=== PATIENT | female | born 1960 | race Caucasian/White ===

== ENCOUNTER 2016-11-10 10:17 | Emergency (ER) | payer SELFPAY ==
--- NOTE | 2016-11-10 11:10 | ERRECORD ---
[facility] EMERGENCY RECORD HPI PSYCHIATRIC (10:45 WMEI) CHIEF COMPLAINT: Patient presents for evaluation of suicidal ideation, Patient presents for evaluation of pt referred by pcp from office. HISTORIAN: History provided by patient, pt denies any current suicidal ideation but has entertained the idea of suicide later this year because of chronic medical condition/back pain pt coherent denies depression previous psych problems and doesn't want to any lab. Agrees to make MHMR apt to be evaluated. LOCATION: No localizing symptoms. TIME COURSE: There has been no change in the patient's symptoms over time. ASSOCIATED WITH: No associated symptoms, No associated alcohol use, No associated delusions, No associated depression, No associated family problems. EXACERBATED BY: Patient's condition exacerbated by nothing. RELIEVED BY: Patient's condition relieved by nothing. ROS (10:38 WMEI) CONSTITUTIONAL: Historian denies chills, denies fever. EYES: Historian denies eye redness, denies eye discharge. ENT: Historian denies rhinorrhea, denies sore throat. CARDIOVASCULAR: Historian denies chest pain, no radiation. RESPIRATORY: Historian denies cough, denies shortness of breath. GI: Historian denies abdominal pain, denies nausea. GENITOURINARY FEMALE: Historian denies frequency, denies urgency. MUSCULOSKELETAL: Historian reports arthralgias, reports back pain. SKIN: Historian denies skin changes, denies skin lesions. NEUROLOGIC: Historian denies focal weakness, denies mental status changes. PSYCHIATRIC: Historian denies alcohol abuse, denies drug abuse. PAST MEDICAL HISTORY (10:32 ASA) MEDICAL HISTORY: Flu vaccine not up to date, Tetanus not up to date, Pneumococcal vaccine not up to date, Past medical history includes neurological disease, Autism, Past medical history includes pulmonary disease, asthma. FEMALE SURGICAL HISTORY: Surgical history of appendectomy, Surgical history of orthopedic surgery, back, HAJRINDER thumb, knee, hand. PSYCHIATRIC HISTORY: No previous psychiatric history, no history of suicidal ideations. SOCIAL HISTORY: Patient denies alcohol use, Patient denies drug use, Patient has no smoking history. KNOWN ALLERGIES Adderall Aleve doxycycline monohydrate &a-1R&a+25V*p+0X*t6188C*c202B*c15G*c2P*p-0X&a-25V&a+1R Name: Elida Bennett : 1960 F55 MedRec: [id number] AcctNum: [id number] Prepared: Emma Nov 10, 2016 17:07 by Interface Page 1 of 3 pMD [facility] EMERGENCY RECORD Ritalin unknown CURRENT MEDICATIONS glucosamine HCl: TABLET : Strength - 1,500 mg : ORAL Patient Dose: Unknown. (10:35 ASAH) albuterol: AEROSOL (GRAM) : Strength - 90 mcg : INHALATION Patient Dose: Unknown. (10:35 ASAH) ALPRAZolam: TABLET : Strength - 0.5 mg : ORAL Patient Dose: Unknown. (10:36 ASAH) hydrochlorothiazide: TABLET : Strength - 50 mg : ORAL Patient Dose: Unknown. (10:36 ASAH) clonazePAM: TABLET : Strength - 1 mg : ORAL Patient Dose: Unknown. (10:36 ASAH) traMADol: TABLET : Strength - 50 mg : ORAL Patient Dose: Unknown. (10:37 ASAH) VITAL SIGNS (10:25 ASAH) VITAL SIGNS: BP: 166/96, Pulse: 99, Resp: 16, Temp: 98.0 (Oral), Pain: 5, O2 sat: 99, Time: 11/10/2016 10:25. PHYSICAL EXAM (10:42 WMEI) CONSTITUTIONAL: Vital signs reviewed, Patient appears non toxic, Patient alert and oriented to person, place and time. HEAD: Head exam included findings of head atraumatic, normocephalic. EYES: Conjunctiva normal, Sclera normal. ENT: Ear exam normal, Nose exam normal. NECK: Neck exam included findings of normal range of motion, Trachea midline. RESPIRATORY CHEST: Breath sounds clear, Chest exam included findings of chest movement symmetrical. CARDIOVASCULAR: Cardiovascular exam included findings of heart rate regular rate and rhythm. ABDOMEN FEMALE: pt refuses. BACK: Tenderness. UPPER EXTREMITY: Upper extremity exam included findings of inspection normal, Range of motion normal, Motor strength normal. LOWER EXTREMITY: Lower extremity exam included findings of inspection normal, Range of motion normal. NEURO: Padmini coma scale 15, Neuro exam findings include patient oriented to person, place and time, Speech normal, Gait normal. SKIN: Skin exam included findings of skin warm, dry, and normal in color. &a-1R&a+25V*p+0X*x9544B*c202B*c15G*c2P*p-0X&a-25V&a+1R Name: Elida Bennett : 1960 F55 MedRec: [id number] AcctNum: [id number] Prepared: MonNov 10, 2016 17:07 by Interface Page 2 of 3 pMD [facility] EMERGENCY RECORD LYMPHATIC: Lymphatic exam normal. PSYCHIATRIC: Psychiatric exam included findings of patient oriented to person place and time, Normal affect, Judgment normal, Insight normal. DOCTOR NOTES (10:51 WMEI) TEXT: TALKED TO DR HERNANDEZ PCP PT DENIES ANY CURRENT SUICIDAL IDEATION OTHER THAN CHRONIC BACK PAIN FEELS FINE. PT AGREES TO MAKE [facility] APT. CONTACTED [facility] EXPECTING CALL FROM PT FOR APT. PROBLEM LIST No recorded problems DIAGNOSIS (10:54 WMEI) FINAL: PRIMARY: LOW BACK PAIN/CHRONIC. PRESCRIPTION No recorded prescriptions DISPOSITION PATIENT: Disposition Type: Discharge, Disposition: *Discharge Home. (10:54 WMEI) Patient left the department. (11:02 JEREMIAS) Almanzar: JEREMIAS=HORACIO Hicks, January WMEI=DO Agustin William &a-1R&a+25V*p+0X*v6063Q*c202B*c15G*c2P*p-0X&a-25V&a+1R Name: Elida Bennett : 1960 F55 MedRec: [id number] AcctNum: [id number] Prepared: Emma Nov 10, 2016 17:07 by Interface Page 3 of 3 pMD MTDD
--- NOTE | 2016-11-10 11:17 | PICIS ---
[facility] EMERGENCY RECORD TRIAGE (MonNov 10, 2016 10:28 ASA) TRIAGE NOTES: pt sent over from PCP for medical clearance. pt denies SI or HI. (MonNov 10, 2016 10:28 ASA) PATIENT: NAME: Elida Bennett, AGE: 55, GENDER: female, : Mon1960, TIME OF GREET: MonNov 10, 2016 10:18, PREFERRED LANGUAGE: Tuvaluan, ETHNICITY: Not or , ECODE BILLING MAP: [facility], SSN: [id number], Zip Code: [address], KG WEIGHT: 50.80, PHONE: , , , PERSON ID: [id number], PAYMENT: [employer] Self Pay, PCP: DO FELDER KRISTEL. (MonNov 10, 2016 10:28 ASA) COMPLAINT: medical clearence per PCP request. (MonNov 10, 2016 10:28 ASA) ADMISSION: URGENCY: 3 Urgent, ADMISSION SOURCE: Doctor's Office, TRANSPORT: Walk-in, BED: ER -04. (MonNov 10, 2016 10:28 ASAH) PAIN: Patient complains of pain described as, aching, Location back, Pain is constant, No aggravating factors, No relieving factors. (10:32 ASAH) IMMUNIZATIONS: Flu vaccine not up to date, Tetanus not up to date, Pneumococcal vaccine not up to date. (10:32 ASAH) SIRS SCORING: Heart Rate 55-109 (0), Temp range 96.8-101.1 (0), respiratory rate 12-24 (0), Latest WBC 3-14.9 (0), Mental status altered: yes (1), Infection or Suspected Infection: No. (10:32 ASAH) TRIAGE SCREENING: Patient denies suicidal ideation, Patient denies presence of domestic violence. (10:32 ASAH) LMP: LMP: Not Applicable. (10:32 ASAH) PROVIDERS: TRIAGE NURSE: Gina Hicks RN. (Emma Nov 10, 2016 10:28 ASA) VITAL SIGNS: BP 166/96, Pulse 99, Resp 16, Temp 98.0, (Oral), Pain 5, O2 Sat 99, Time 11/10/2016 10:25. (10:25 ASAH) KNOWN ALLERGIES Adderall Aleve doxycycline monohydrate Ritalin unknown CURRENT MEDICATIONS glucosamine HCl: TABLET : Strength - 1,500 mg : ORAL Patient Dose: Unknown. (10:35 ASAH) albuterol: AEROSOL (GRAM) : Strength - 90 mcg : INHALATION Patient Dose: Unknown. (10:35 ASAH) ALPRAZolam: TABLET : Strength - 0.5 mg : ORAL Patient Dose: Unknown. (10:36 ASAH) &a-1R&a+25V*p+0X*j3561K*c202B*c15G*c2P*p-0X&a-25V&a+1R Name: Elida Bennett : 1960 F55 MedRec: [id number] AcctNum: [id number] Prepared: [facility] Nov 10, 2016 17:13 by Interface Page 1 of 4 pMD [facility] EMERGENCY RECORD hydrochlorothiazide: TABLET : Strength - 50 mg : ORAL Patient Dose: Unknown. (10:36 ASAH) clonazePAM: TABLET : Strength - 1 mg : ORAL Patient Dose: Unknown. (10:36 ASAH) traMADol: TABLET : Strength - 50 mg : ORAL Patient Dose: Unknown. (10:37 ASAH) VITAL SIGNS (10:25 ASAH) VITAL SIGNS: BP: 166/96, Pulse: 99, Resp: 16, Temp: 98.0 (Oral), Pain: 5, O2 sat: 99, Time: 11/10/2016 10:25. NURSING PROCEDURE: DISCHARGE NOTE (11:01 ASA) DISCHARGE: Patient discharged to home, ambulating without assistance, driving self, unaccompanied, Summary of Care printed/ provided, Discharge instructions given to patient, Simple or moderate discharge teaching performed, by horacio mendoza. SAFETY: Side rails up, Cart/Stretcher in lowest position, Call light within reach, Hospital ID band on. NURSING PROCEDURE: NURSE NOTES (10:48 LSMI) NURSES NOTES: Notes: SPOKE WITH SIMBA AT [facility] ABOUT SETTING UP APT FOR PT HERE AT THE LOCAL OFFICE. SHE STATES THAT THEY ONLY DO SCREENINGS ON THURSDAYS FROM 0830 TO 1100. NO APPT NEEDED. THE PT JUST NEEDS TO SHOW UP. WALK IN SERVIVE ONLY. DR AGUSTIN AWARE AND AGREES. HPI PSYCHIATRIC (10:45 WMEI) CHIEF COMPLAINT: Patient presents for evaluation of suicidal ideation, Patient presents for evaluation of pt referred by pcp from office. HISTORIAN: History provided by patient, pt denies any current suicidal ideation but has entertained the idea of suicide later this year because of chronic medical condition/back pain pt coherent denies depression previous psych problems and doesn't want to any lab. Agrees to make MHMR apt to be evaluated. LOCATION: No localizing symptoms. TIME COURSE: There has been no change in the patient's symptoms over time. ASSOCIATED WITH: No associated symptoms, No associated alcohol use, No associated delusions, No associated depression, No associated family problems. EXACERBATED BY: Patient's condition exacerbated by nothing. RELIEVED BY: Patient's condition relieved by nothing. ROS (10:38 WMEI) CONSTITUTIONAL: Historian denies chills, denies fever. EYES: Historian denies eye redness, denies eye discharge. ENT: Historian denies rhinorrhea, denies sore throat. &a-1R&a+25V*p+0X*q4578P*c202B*c15G*c2P*p-0X&a-25V&a+1R Name: Elida Bennett : 1960 F55 MedRec: [id number] AcctNum: [id number] Prepared: Emma Nov 10, 2016 17:13 by Interface Page 2 of 4 pMD [facility] EMERGENCY RECORD CARDIOVASCULAR: Historian denies chest pain, no radiation. RESPIRATORY: Historian denies cough, denies shortness of breath. GI: Historian denies abdominal pain, denies nausea. GENITOURINARY FEMALE: Historian denies frequency, denies urgency. MUSCULOSKELETAL: Historian reports arthralgias, reports back pain. SKIN: Historian denies skin changes, denies skin lesions. NEUROLOGIC: Historian denies focal weakness, denies mental status changes. PSYCHIATRIC: Historian denies alcohol abuse, denies drug abuse. PAST MEDICAL HISTORY (10:32 ASA) MEDICAL HISTORY: Flu vaccine not up to date, Tetanus not up to date, Pneumococcal vaccine not up to date, Past medical history includes neurological disease, Autism, Past medical history includes pulmonary disease, asthma. FEMALE SURGICAL HISTORY: Surgical history of appendectomy, Surgical history of orthopedic surgery, back, HARJINDER thumb, knee, hand. PSYCHIATRIC HISTORY: No previous psychiatric history, no history of suicidal ideations. SOCIAL HISTORY: Patient denies alcohol use, Patient denies drug use, Patient has no smoking history. PHYSICAL EXAM (10:42 WMEI) CONSTITUTIONAL: Vital signs reviewed, Patient appears non toxic, Patient alert and oriented to person, place and time. HEAD: Head exam included findings of head atraumatic, normocephalic. EYES: Conjunctiva normal, Sclera normal. ENT: Ear exam normal, Nose exam normal. NECK: Neck exam included findings of normal range of motion, Trachea midline. RESPIRATORY CHEST: Breath sounds clear, Chest exam included findings of chest movement symmetrical. CARDIOVASCULAR: Cardiovascular exam included findings of heart rate regular rate and rhythm. ABDOMEN FEMALE: pt refuses. BACK: Tenderness. UPPER EXTREMITY: Upper extremity exam included findings of inspection normal, Range of motion normal, Motor strength normal. LOWER EXTREMITY: Lower extremity exam included findings of inspection normal, Range of motion normal. NEURO: [place] coma scale 15, Neuro exam findings include patient oriented to person, place and time, Speech normal, Gait normal. SKIN: Skin exam included findings of skin warm, dry, and normal in color. LYMPHATIC: Lymphatic exam normal. PSYCHIATRIC: Psychiatric exam included findings of patient &a-1R&a+25V*p+0X*b9293K*c202B*c15G*c2P*p-0X&a-25V&a+1R Name: Elida Bennett : 1960 F55 MedRec: [id number] AcctNum: [id number] Prepared: MonNov 10, 2016 17:13 by Interface Page 3 of 4 pMD [facility] EMERGENCY RECORD oriented to person place and time, Normal affect, Judgment normal, Insight normal. EVENTS TRANSFER: Triage to Emergency Emergency Room -04. (MonNov 10, 2016 10:28 ASAH) Removed from Emergency Emergency Room -04. (11:02 ASA) DOCTOR NOTES (10:51 WMEI) TEXT: TALKED TO DR HERNANDEZ PCP PT DENIES ANY CURRENT SUICIDAL IDEATION OTHER THAN CHRONIC BACK PAIN FEELS FINE. PT AGREES TO MAKE [facility] APT. CONTACTED [facility] EXPECTING CALL FROM PT FOR APT. PROBLEM LIST No recorded problems DIAGNOSIS (10:54 [facility]) FINAL: PRIMARY: LOW BACK PAIN/CHRONIC. DISPOSITION PATIENT: Disposition Type: Discharge, Disposition: *Discharge Home. (10:54 WM) Patient left the department. (11:02 [facility]) INSTRUCTION (10:58 [facility]) FOLLOWUP: DO FELDER KRISTEL, [facility], [address] [address], [phone]. PRESCRIPTION No recorded prescriptions IMAGING (11:02 [facility]) *DISCHARGE INSTRUCTIONS RECEIPT: Image captured from scanner. *SUPPLY CHARGE SHEET: Image captured from scanner. ADMIN DIGITAL SIGNATURE: HORACIO Hicks, January. (11:02 [facility]) DO Agustin William. (17:05 [facility]) Almanzar: ASA=HORACIO Hicks, January LSMI=ÁLVARO Gunn Leah WMEI=DO Agustin William &a-1R&a+25V*p+0X*s8722F*c202B*c15G*c2P*p-0X&a-25V&a+1R Name: Elida Bennett : 1960 F55 MedRec: [id number] AcctNum: [id number] Prepared: Emma Nov 10, 2016 17:13 by Interface Page 4 of 4 pMD MTDD
== END 2016-11-10 11:01 | disposition home or self-care (01) ==
LOC: BURERS 10:17
DX: M54.5 Low back pain (principal); G89.29 Other chronic pain; J45.909 Unspecified asthma, uncomplicated
CPT/HCPCS: 99284

== ENCOUNTER 2020-01-31 09:48 | Emergency (ER) | payer OTHER, SELFPAY ==
[2020-01-31] MEDS ORDERED: Adacel (T-DAP) 0.5 ML SYRINGE ONE (10:22)
== END 2020-01-31 10:32 | disposition home or self-care (01) ==
LOC: BURERS 09:48
DX: S41.151A Open bite of right upper arm, initial encounter (principal); L03.113 Cellulitis of right upper limb; F84.0 Autistic disorder; J45.909 Unspecified asthma, uncomplicated; Z23 Encounter for immunization; W55.01XA Bitten by cat, initial encounter
CPT/HCPCS: 90471; 90715

== ENCOUNTER 2024-07-30 16:57 | Emergency (ER) | payer OTHER ==
[2024-07-30 17:42] LABS: #Basophils 0.1 thou/uL (0.0-0.2); #Lymphocytes 1.3 thou/uL (1.20-3.40); #Monocytes 0.5 thou/uL (0.11-0.59); #Neutrophils 8.3 thou/uL (1.40-6.50); %Basophils 0.5 % (0.0-1.0); %Eosinophils 0.1 % (0.0-10.0); %Lymphocytes 12.8 % (21.0-51.0); %Neutrophils 81.6 % (42.0-75.0); Hematocrit 45.3 % (36.0-47.0); Hemoglobin 14.5 g/dL (12.0-16.0); Mean Corpuscular HGB CONC 32.1 g/dL (32.0-36.0); Mean Corpuscular Hemoglobin 29.8 pg (27.0-31.0); Mean Corpuscular Volume 92.7 fl (78.0-98.0); Mean Platelet Volume 5.7 fL (7.4-10.4); Platelet Count 535 10x3/uL (130-400); RBC Distribution Width 11.8 % (11.5-14.5); Red Blood Cell (RBC) Count 4.89 mill/uL (4.20-5.40); White Blood Cell (WBC) Count 10.1 10x3/uL (4.8-10.8)
[2024-07-30 18:01] LABS: ALT (SGPT) 37 U/L (8-55); AST (SGOT) 29 U/L (5-34); Albumin 4.5 g/dL (3.4-4.8); Alkaline Phosphatase 102 U/L (40-110); Anion Gap 16 mmol/L (10-20); BUN (Urea Nitrogen) 7 mg/dL (9.8-20.1); Bilirubin, Total 0.9 mg/dL (0.2-1.2); Calc. Creatinine Clearance 0 mL/min (70-130); Carbon Dioxide 31 mmol/L (23-31); Chloride 97 mmol/L (98-107); Estimated GFR 89; Globulin 2.8 g/dL (2.4-3.5); Glucose 94 mg/dL (80-115); Lipase 11 U/L (8-78); Potassium 2.7 mmol/L (3.5-5.1); Protein, Total 7.3 g/dL (5.8-8.1); Sodium 141 mmol/L (136-145)
[2024-07-30 18:07] LABS: Bilirubin Negative (Negative); Blood, Urine Negative (Negative); Clarity Clear (Clear); Glucose, Urine (Dipstick) Negative (Negative); Ketone, Urine Negative (Negative); Leukocyte Negative (Negative); Nitrite Negative (Negative); Protein, Urine (Dipstick) Negative (Neg-Trace); Urobilinogen 0.2 mg/dL (Less than 2)
[2024-07-30 18:21] LABS: Bacteria/HPF None Seen HPF (None Seen); CAUTI Indications for Culture Dysuria,urgency,freq; RBC/HPF None Seen HPF (0-3); Squamous Epithelial None Seen HPF (0-3); WBC/HPF None Seen HPF (0-3)
[2024-07-30 18:22] LABS: Urine Culture Reflex No No
[2024-07-30] MEDS ORDERED: Polyethylene Glycol 3350 17 GM Packet PO SCH (19:45)
[2024-07-30] MEDS ORDERED: Simethicone Chewable 80 MG TAB PO SCH (19:45)
== END 2024-07-30 19:45 | disposition home or self-care (01) ==
LOC: BURERS 16:57
DX: K59.00 Constipation, unspecified (principal); I10 Essential (primary) hypertension; F84.0 Autistic disorder
CPT/HCPCS: 36415; 74177; 80053; 81001; 83690; 85025

== ENCOUNTER 2024-10-18 15:05 | Emergency (ER) | payer OTHER | END 2024-10-18 16:47 | disposition home or self-care (01) | LOC: BURERS 15:05 | DX: R07.89 Other chest pain (principal); F41.9 Anxiety disorder, unspecified; K59.00 Constipation, unspecified; F84.0 Autistic disorder; I10 Essential (primary) hypertension | CPT/HCPCS: 71045; 93005 ==

== ENCOUNTER 2025-09-06 11:11 | Emergency (ER) | payer OTHER ==
[2025-09-06] MEDS ORDERED: Dexamethasone 10 MG/ML VIAL ONE (12:03)
== END 2025-09-06 12:55 | disposition home or self-care (01) ==
LOC: BURERS 11:11
DX: L29.9 Pruritus, unspecified (principal); I10 Essential (primary) hypertension; J45.909 Unspecified asthma, uncomplicated; Z79.51 Long term (current) use of inhaled steroids; Z79.899 Other long term (current) drug therapy
CPT/HCPCS: 96372; 99282; J1100